=== PATIENT | male | born 1950 | race Caucasian/White ===

== ENCOUNTER 2023-10-24 09:11 | Outpatient (CLI) | payer MEDICARE, SELFPAY | END 2023-10-24 09:12 | disposition home or self-care (01) | PROVIDERS: PCP Internal Medicine; Visit Provider Internal Medicine | DX: E78.5 Hyperlipidemia, unspecified (principal); I10 Essential (primary) hypertension; Z12.5 Encounter for screening for malignant neoplasm of prostate | CPT/HCPCS: 80053; 80061; G0103 ==

== ENCOUNTER 2024-10-24 10:27 | Outpatient (CLI) | payer MEDICARE, SELFPAY | END 2024-10-24 10:28 | disposition home or self-care (01) | PROVIDERS: PCP Internal Medicine; Visit Provider Internal Medicine | DX: E78.5 Hyperlipidemia, unspecified (principal); I10 Essential (primary) hypertension; Z12.5 Encounter for screening for malignant neoplasm of prostate | CPT/HCPCS: 80053; 80061; G0103 ==